=== PATIENT | male | born 1955 | race Caucasian/White ===

== ENCOUNTER → 2020-08-18 | Outpatient (CLI) | payer BC ==
[~2020-08-18] MED LIST: ALEVE 220MG220 MG PO; ASPIRIN 81M81 MG/TA2 PO; CARDI-OMEGA1000 MG PO; CETIRIZINE; GLUCOPHAGE500 MG/TAB PO; LIVALO1 MG; LIVALO2 MG PO; MVI; NIACIN1000 MG PO; ZYRTEC 10MG10 MG PO
== END ==
LOC: COL.RAD 08:10
DX: Z01.812 Encounter for preprocedural laboratory examination (principal); C61 Malignant neoplasm of prostate; M89.9 Disorder of bone, unspecified
CPT/HCPCS: Q9967

== ENCOUNTER → 2020-08-26 | Outpatient (CLI) | payer BC | LOC: COL.RAD 09:27 | DX: C61 Malignant neoplasm of prostate (principal) | CPT/HCPCS: A9503 ==